=== PATIENT | male | born 1990 | race African-American/Black ===

== ENCOUNTER 2017-05-25 20:57 | Emergency (ER) | payer OTHER | END 2017-05-25 23:00 | disposition home or self-care (01) | LOC: M ED 20:57 | DX: G62.9 Polyneuropathy, unspecified (principal); T33.821A Superficial frostbite of right foot, initial encounter; T33.822A Superficial frostbite of left foot, initial encounter; X31.XXXA Exposure to excessive natural cold, initial encounter; Y92.139 Unspecified place military base as the place of occurrence of the external cause; Y99.1 Military activity | CPT/HCPCS: 99282 ==